=== PATIENT | female | born 1950 | race Native Hawaiian/Other Pacific Islander ===

== ENCOUNTER 2016-04-15 09:33 | Outpatient (CLI) | payer OTHER ==
[2016-04-15 10:13] LABS: PLATELET COUNT 255 K/uL (152-353)
[2016-04-15 10:14] LABS: POTASSIUM 5.1 mmol/L (3.6-5.2)
== END 2016-04-15 10:33 | disposition home or self-care (01) ==
LOC: LABW 09:33
PROVIDERS: Internal Medicine
DX: I10 Essential (primary) hypertension (principal); E11.9 Type 2 diabetes mellitus without complications
CPT/HCPCS: 36415; 80048; 80061; 82040; 83036; 84100; 84550; 85027

== ENCOUNTER 2016-10-31 08:39 | Outpatient (CLI) | payer OTHER | END 2016-10-31 19:30 | disposition home or self-care (01) | LOC: MAMMO 08:39 | DX: Z12.31 Encounter for screening mammogram for malignant neoplasm of breast (principal) | CPT/HCPCS: G0202-TC ==

== ENCOUNTER 2017-01-02 07:20 | Outpatient (CLI) | payer OTHER ==
[2017-01-02 07:55] LABS: PLATELET COUNT 267 K/uL (152-353)
[2017-01-02 08:46] LABS: POTASSIUM 4.8 mmol/L (3.6-5.2)
== END 2017-01-02 19:29 | disposition home or self-care (01) ==
LOC: LABW 07:20
PROVIDERS: Nurse Practitioner Family
DX: N18.3 Chronic kidney disease, stage 3 (moderate) (principal)
CPT/HCPCS: 36415; 80048; 82040; 84100; 84550; 85027

== ENCOUNTER 2017-11-02 09:05 | Outpatient (CLI) | payer OTHER | END 2017-11-02 19:30 | disposition home or self-care (01) | LOC: MAMMO 09:05 | DX: Z12.31 Encounter for screening mammogram for malignant neoplasm of breast (principal) ==

== ENCOUNTER 2018-11-07 10:10 | Outpatient (CLI) | payer OTHER | END 2018-11-07 19:51 | disposition home or self-care (01) | LOC: MAMMO 10:10 | DX: Z12.31 Encounter for screening mammogram for malignant neoplasm of breast (principal) ==

== ENCOUNTER 2021-12-28 13:04 | Outpatient (CLI) | payer OTHER | END 2021-12-28 20:33 | disposition home or self-care (01) | LOC: RESP 13:04 | PROVIDERS: ATTEND Nurse Practitioner Family | DX: Z12.31 Encounter for screening mammogram for malignant neoplasm of breast (principal); I10 Essential (primary) hypertension; R06.02 Shortness of breath ==